=== PATIENT | female | born 1985 | race Hispanic/Latino ===

== ENCOUNTER 2023-11-04 15:15 | Emergency (ER) | payer SELFPAY ==
[2023-11-04 16:01] LABS: Bilirubin Neg (Negative); Blood, Urine 10 (Negative); Clarity Cloudy (Clear); Glucose, Urine (Dipstick) Normal (Negative); Ketone, Urine Negative (Negative); Leukocyte 25 (Negative); Nitrite Negative (Negative); Protein, Urine (Dipstick) Negative (Neg-Trace); Specific Gravity, Urine 1.015 (1.005-1.030); Urobilinogen Normal mg/dL (Less than 2)
[2023-11-04] MEDS ORDERED: diphenhydrAMINE 50 MG/ML VIAL ONE (16:02)
[2023-11-04] MEDS ORDERED: Prochlorperazine 10 MG/2 ML VIAL ONE (16:03)
[2023-11-04] MEDS ORDERED: Ketorolac Tromethamine 30 MG (1 mL) VIAL ONE (16:03)
[2023-11-04] MEDS ORDERED: Prochlorperazine Maleate 5 MG TAB ONE (16:11)
[2023-11-04 16:23] LABS: Bacteria/HPF 1+ HPF (None Seen); CAUTI Indications for Culture Pelvic or flank pain; Mucous/LPF Rare LPF (<2+); RBC/HPF 0-3 HPF (0-3); WBC/HPF 0-3 HPF (0-3)
[2023-11-04 16:24] LABS: Urine Culture Reflex No No
[2023-11-04 16:36] LABS: Influenza A by NAA Not Detected (NotDetected); Influenza B by NAA Not Detected (NotDetected); SARS-CoV-2 NAA Rapid Test Not Detected (NotDetected)
[2023-11-04] MEDS ORDERED: Acetaminophen 500 MG TAB ONE (18:46)
== END 2023-11-04 19:02 | disposition home or self-care (01) ==
LOC: CSHERS 15:15
DX: G43.919 Migraine, unspecified, intractable, without status migrainosus (principal)
CPT/HCPCS: 81001; 96374; 96375; J0780; J1200; J1885; Q0164

== ENCOUNTER 2024-12-03 13:06 | Emergency (ER) | payer SELFPAY ==
[2024-12-03] MEDS ORDERED: HYDROcodone/Acetaminophen 5/325 mg Tablet ONE (14:05)
== END 2024-12-03 17:02 | disposition home or self-care (01) ==
LOC: CSHERS 13:06
DX: S91.201A Unspecified open wound of right great toe with damage to nail, initial encounter (principal); M79.674 Pain in right toe(s); W20.8XXA Other cause of strike by thrown, projected or falling object, initial encounter
CPT/HCPCS: 99283